=== PATIENT | male | born 1985 | race Caucasian/White ===

== ENCOUNTER 2019-05-07 09:51 | Emergency (ER) | payer BC, OTHER ==
[~2019-05-07] VITALS: Ht 182.9 cm; Wt 127.0 kg
[2019-05-07 10:18] VITALS: BP 136/80
== END 2019-05-07 11:30 | disposition home or self-care (01) ==
LOC: ER 09:51
DX: S63.502A Unspecified sprain of left wrist, initial encounter (principal); W19.XXXA Unspecified fall, initial encounter; Y93.89 Activity, other specified; Y99.8 Other external cause status; Y92.89 Other specified places as the place of occurrence of the external cause
CPT/HCPCS: 73110

== ENCOUNTER 2019-05-15 16:58 | Inpatient (IN) | payer BC ==
[~2019-05-15] VITALS: Ht 182.9 cm; Wt 128.8 kg
[2019-05-15] MEDS ORDERED: SODIUM CHLORIDE 0.9% 1,000 ML IVB ONE (17:28)
[2019-05-15 17:54] LABS: Basophils # (auto) 0.1 10 ^3/uL (0-0.2); Basophils % (auto) 1.2 % (0.0-2.0); Eosinophils # (auto) 0.1 10 ^3/uL (0-0.8); Eosinophils % (auto) 1.2 % (0.0-7.0); Hematocrit 44.2 % (41.0-53.0); Hemoglobin 15.4 g/dL (13.5-17.5); Lymphocytes # (auto) 1.2 10 ^3/uL (0.4-5.4); Lymphocytes % (auto) 17.9 % (10.0-50.0); Mean Corpuscular Hemoglobin 30.3 pg (28.0-32.0); Mean Corpuscular Hgb Conc. 34.8 g/dL (32.0-36.0); Mean Corpuscular Volume 86.8 fL (80.0-100.0); Monocytes # (auto) 0.4 10 ^3/uL (0-1.3); Monocytes % (auto) 6.3 % (0.0-12.0); Neutrophils # (auto) 4.7 10 ^3/uL (1.6-8.6); Neutrophils % (auto) 73.4 % (37.0-80.0); Platelet Count (auto) 224 10^3/uL (140-450); Red Blood Cells 5.09 10^6/uL (4.5-5.90); Red Cell Distribution Width 13.4 % (11.8-14.3); White Blood Cell 6.4 10^3/uL (4.4-10.8)
[2019-05-15 18:20] LABS: Alanine Aminotransferase 32 U/L (16-61); Albumin 4.1 g/dL (3.4-5.0); Anion Gap 2 (5-15); Aspartate Aminotransferase 17 U/L (15-37); Blood Urea Nitrogen 13 mg/dL (7-18); Calcium 8.7 mg/dL (8.5-10.1); Carbon Dioxide 28 mmol/L (21-32); Chloride 110 mmol/L (98-107); Glucose 105 mg/dL (74-106); Magnesium 2.3 mg/dL (1.6-2.6); Potassium 3.9 mmol/L (3.5-5.1); Sodium 140 mmol/L (136-145)
[2019-05-15 18:25] LABS: Alkaline Phosphatase 69 U/L (45-117); Bilirubin, Total 0.4 mg/dL (0.2-1.0); GFR African American 112 mL/min; GFR Non-African American 93 mL/min; Total Protein 7.1 g/dL (6.4-8.2)
[2019-05-15 19:54] LABS: Urine Bacteria NONE SEEN /hpf (None Seen); Urine Blood Negative /uL (Negative); Urine Specific Gravity 1.005 (1.001-1.035); Urine WBC <1 /hpf (0 - 3)
[2019-05-15 20:11] LABS: Alcohol, Urine < 3.0 mg/dL (0-5); Amphetamine Screen, Urine NEGATIVE (NEGATIVE); Barbiturate Scree,Urine NEGATIVE (NEGATIVE); Benzodiazephine Screen, Urine NEGATIVE (NEGATIVE); Cannabinoid Screen, Urine NEGATIVE (NEGATIVE); Cocaine Screen, Urine NEGATIVE (NEGATIVE); Opiate Scree,Urine NEGATIVE (NEGATIVE); Phencyclidine Screen, Urine NEGATIVE (NEGATIVE)
[2019-05-15] MEDS ORDERED: ACETAMINOPHEN 325 MG TAB PO PRN (21:30)
[2019-05-15] MEDS ORDERED: ONDANSETRON HCL 4 MG/2 ML VIAL IV PRN (21:30)
[2019-05-15] MEDS ORDERED: MECLIZINE HCL 25 MG TAB PO PRN (21:30)
[2019-05-15] MEDS ORDERED: MECLIZINE HCL 25 MG TAB PO ONE (21:30)
[2019-05-15] MEDS ORDERED: TEMAZEPAM 15 MG CAP PO PRN (21:30)
[2019-05-15] MEDS: IBUPROFEN 600 MG TAB PO PRN (21:49)
[2019-05-15] MEDS: FAMOTIDINE 20 MG TAB PO SCH (22:00)
[2019-05-15 23:15] VITALS: BP 141/82
[2019-05-16 04:38] VITALS: BP 114/74
[2019-05-16 09:00] VITALS: BP 106/63
[2019-05-16] MEDS: FAMOTIDINE 20 MG TAB PO SCH ×3 (09:33→21:49)
[2019-05-16 11:33] LABS: Calcium 9.4 mg/dL (8.5-10.1); Potassium 3.8 mmol/L (3.5-5.1)
[2019-05-16 11:35] LABS: BUN/Creatinine Ratio 13.5
[2019-05-16 11:44] LABS: Folate (Folic Acid) 21.43 ng/mL (5.38-24)
[2019-05-16 12:50] VITALS: BP 139/86
[2019-05-16 16:56] VITALS: BP 120/72
[2019-05-16] MEDS: IBUPROFEN 600 MG TAB PO PRN (21:15)
[2019-05-16 21:37] VITALS: BP 127/72
[2019-05-17 04:38] VITALS: BP 100/56
[2019-05-17 06:44] LABS: BUN/Creatinine Ratio 20.6; Calcium 8.7 mg/dL (8.5-10.1); Potassium 3.7 mmol/L (3.5-5.1)
[2019-05-17 09:00] VITALS: BP 100/62
[2019-05-17] MEDS: FAMOTIDINE 20 MG TAB PO SCH (10:00)
[2019-05-17 13:00] VITALS: BP 117/76
[2019-05-17 15:21] VITALS: BP 107/73
== END 2019-05-17 16:00 | disposition home or self-care (01) | DRG 312 ==
LOC: ER 16:58 → OVERFLOW 16:59 → WEST WING 23:03 → TELE-WESTW 23:31
PROVIDERS: ADMIT Nurse Practitioner; ATTEND Internal Medicine
DX: R55 Syncope and collapse (principal); F17.200 Nicotine dependence, unspecified, uncomplicated; E66.9 Obesity, unspecified; Z68.38 Body mass index [BMI] 38.0-38.9, adult; Z80.3 Family history of malignant neoplasm of breast; Z82.0 Family history of epilepsy and other diseases of the nervous system; Z82.3 Family history of stroke; Z83.3 Family history of diabetes mellitus
CPT/HCPCS: 36415; 70450; 70551; 71046; 80048; 80053; 80307; 81001; 82607; 82746; 82962; 83036; 83605; 83735; 83880; 84443; 84484; 85025; 87040; 93005; 93306; 93886; 96360; G0378